=== PATIENT | female | born 1985 | race Two or more races ===

== ENCOUNTER 2019-09-20 19:11 | Emergency (ER) | payer MEDICAID, OTHER ==
[~2019-09-20] VITALS: Ht 157.5 cm; Wt 61.9 kg
[2019-09-20 19:24] VITALS: BP 96/46
--- NOTE | 2019-09-20 20:11 | NUR ---
pt to xr. as
[2019-09-20] MEDS ORDERED: PLEASE ENTER ALLERGIES MC SCH (20:30)
[2019-09-20] MEDS ORDERED: IBUPROFEN 200 MG TABLET PO ONE (20:30)
[2019-09-20] MEDS ORDERED: IBUPROFEN 200 MG TABLET ONE (20:47)
== END 2019-09-20 21:57 | disposition home or self-care (01) ==
LOC: ED 21:30
DX: S16.1XXA Strain of muscle, fascia and tendon at neck level, initial encounter (principal); S39.012A Strain of muscle, fascia and tendon of lower back, initial encounter; R07.89 Other chest pain; F17.200 Nicotine dependence, unspecified, uncomplicated; V49.09XA Driver injured in collision with other motor vehicles in nontraffic accident, initial encounter; Y93.89 Activity, other specified; Y92.410 Unspecified street and highway as the place of occurrence of the external cause; Y99.8 Other external cause status
CPT/HCPCS: 71046; 72110; 72125; 99284